=== PATIENT | male | born 2000 | race Hispanic/Latino ===

== ENCOUNTER 2021-06-18 04:43 | Inpatient (IN) | payer SELFPAY ==
[2021-06-18] VITALS (9 sets, daily range): BP systolic 87–116; BP diastolic 48–65
[~2021-06-18] VITALS: Ht 167.6 cm; Wt 55.0 kg
[2021-06-18 05:17] LABS: HEMATOCRIT 41.7 % (39.0-50.0); HEMOGLOBIN 14.6 g/dl (14.0-18.0); IMMATURE GRANULOCYTES 0.3 % (0.0-5.0); MEAN CELL VOLUME 91.2 fL CALC (80.0-100.0); MEAN CORPUSCULAR HGB 31.9 pG CALC (26.0-32.0); NEUT# 12.45 thou/uL (1.82-7.42); RED BLOOD COUNT 4.57 mill/uL (4.70-6.10); RED CELL DISTRI WIDTH 12.2 % (11.5-15.5)
[2021-06-18 05:34] LABS: ALBUMIN 4.6 g/dL (3.2-5.0); ALKALINE PHOSPHATASE 94 u/l (38-126); AMYLASE 106 u/l (30-110); ANION GAP 12 (6-22 (CALC)); BILIRUBIN, TOTAL 1.1 mg/dL (0.0-1.4); BUN 12 mg/dL (9-20); BUN/CREATININE RATIO 14 (12-20 (CALC)); CARBON DIOXIDE 30 mmol/l (22-30); CHLORIDE 99 mmol/l (95-108); CREATININE 0.8 mg/dL (0.7-1.3); GFR > 60 ML/MIN (>=60 (CALC)); GFR FOR AFR.AMER. > 60 ML/MIN (>=60 (CALC)); LIPASE 154 u/l (23-300); POTASSIUM 3.7 mmol/l (3.5-5.1); SGOT/AST 20 u/l (17-59); SODIUM 137 mmol/l (137-146); TOTAL PROTEIN 8.3 g/dL (6.3-8.2)
[2021-06-18 17:07] LABS: URINE BILIRUBIN - DIPSTICK NEGATIVE (NEGATIVE); URINE BLOOD DIPSTICK NEGATIVE (NEGATIVE); URINE COLOR YELLOW; URINE GLUCOSE - DIPSTICK NEGATIVE (NEGATIVE); URINE KETONE NEGATIVE (NEGATIVE); URINE LEUK ESTERASE NEGATIVE (NEGATIVE); URINE PH 5.5 (4.5-8.0); URINE PROTEIN - DIPSTICK TRACE mg/dL (NEG-TRACE)
[2021-06-18 17:08] LABS: URINE NITRITE - DIPSTICK NEGATIVE (Negative)
[2021-06-19] VITALS: BP 92/58
[2021-06-19 04:00] VITALS: BP 92/58
[2021-06-19 06:09] LABS: HEMATOCRIT 39.5 % (39.0-50.0); HEMOGLOBIN 13.8 g/dl (14.0-18.0); MEAN CELL VOLUME 92.7 fL CALC (80.0-100.0); MEAN CORPUSCULAR HGB 32.4 pG CALC (26.0-32.0); MEAN CORPUSCULAR HGB CONC 34.9 g/dL CAL (32.0-36.0); RED BLOOD COUNT 4.26 mill/uL (4.70-6.10); RED CELL DISTRI WIDTH 12.6 % (11.5-15.5)
[2021-06-19 06:10] LABS: BUN 12 mg/dL (9-20); BUN/CREATININE RATIO 17 (12-20 (CALC)); CHLORIDE 105 mmol/l (95-108); CREATININE 0.8 mg/dL (0.7-1.3); GFR > 60 ML/MIN (>=60 (CALC)); GFR FOR AFR.AMER. > 60 ML/MIN (>=60 (CALC)); MAGNESIUM 1.7 mg/dL (1.6-2.3); SODIUM 137 mmol/l (137-146)
[2021-06-19 06:25] LABS: ANION GAP 14 (6-22 (CALC)); CARBON DIOXIDE 23 mmol/l (22-30); POTASSIUM 4.5 mmol/l (3.5-5.1)
[2021-06-19 10:26] VITALS: BP 130/81
[2021-06-19 19:00] VITALS: BP 101/58
[2021-06-20] VITALS: BP 107/68
[2021-06-20 04:00] VITALS: BP 100/57
[2021-06-20 06:27] LABS: HEMATOCRIT 35.2 % (39.0-50.0); HEMOGLOBIN 12.3 g/dl (14.0-18.0); MEAN CELL VOLUME 93.4 fL CALC (80.0-100.0); MEAN CORPUSCULAR HGB 32.6 pG CALC (26.0-32.0); MEAN CORPUSCULAR HGB CONC 34.9 g/dL CAL (32.0-36.0); RED BLOOD COUNT 3.77 mill/uL (4.70-6.10); RED CELL DISTRI WIDTH 12.4 % (11.5-15.5)
[2021-06-20 06:35] LABS: ANION GAP 12 (6-22 (CALC)); BUN 13 mg/dL (9-20); BUN/CREATININE RATIO 16 (12-20 (CALC)); CARBON DIOXIDE 21 mmol/l (22-30); CHLORIDE 107 mmol/l (95-108); CREATININE 0.8 mg/dL (0.7-1.3); GFR > 60 ML/MIN (>=60 (CALC)); GFR FOR AFR.AMER. > 60 ML/MIN (>=60 (CALC)); SODIUM 136 mmol/l (137-146)
[2021-06-20 06:47] LABS: POTASSIUM 3.5 mmol/l (3.5-5.1)
[2021-06-20 07:15] VITALS: BP 102/55
[2021-06-20] MEDS ORDERED: AMOX/K CLAV875 M1 PO (10:07)
[2021-06-20] MEDS ORDERED: ULTRAM50 M1 PO (10:07)
[2021-06-20 15:24] VITALS: BP 122/67
== END 2021-06-20 17:46 | disposition home or self-care (01) | DRG 340 ==
LOC: ED 04:43 → ED-I 07:40 → ED 07:54 → MS2 07:55
PROVIDERS: Family Medicine; Nurse Practitioner; ADMIT Hospitalist; ATTEND Hospitalist
PROC: 0DTJ4ZZ Resection of Appendix, Percutaneous Endoscopic Approach (ICD-10-PCS; principal; 2021-06-18)
PROC: 3E02340 Introduction of Influenza Vaccine into Muscle, Percutaneous Approach (ICD-10-PCS; 2021-06-19)
DX: K35.32 Acute appendicitis with perforation, localized peritonitis, and gangrene, without abscess (principal); Z23 Encounter for immunization; Z20.822 Contact with and (suspected) exposure to COVID-19
CPT/HCPCS: J0131; Q9967

== ENCOUNTER 2021-07-20 15:19 | Emergency (ER) | payer SELFPAY ==
[~2021-07-20] VITALS: Ht 167.6 cm; Wt 55.4 kg
[~2021-07-20 15:19] MED LIST: AMOX/K CLAV875 M1 PO; ULTRAM50 M1 PO
[2021-07-20] MEDS ORDERED: DIPROLENE AF0.05 % EX (19:49)
[2021-07-20 20:41] VITALS: BP 130/77
== END 2021-07-20 20:47 | disposition home or self-care (01) | DRG 607 ==
LOC: ED 15:19
DX: L30.4 Erythema intertrigo (principal)